=== PATIENT | female | born 1970 | race African-American/Black ===

== ENCOUNTER 2022-01-15 15:43 | Emergency (ER) | payer SELFPAY ==
[~2022-01-15] VITALS: Ht 172.7 cm; Wt 91.2 kg
--- NOTE | 2022-01-15 17:13 | NUR ---
Patient discharged to home in stable condition. Written and verbal after care instructions given. Patient verbalizes understanding of instructions. Stressed follow up or return to ER for worsening s/s.
[2022-01-15 17:21] VITALS: BP 121/70
== END 2022-01-15 17:27 | disposition home or self-care (01) ==
LOC: ER 15:49
DX: S60.221A Contusion of right hand, initial encounter (principal); W22.8XXA Striking against or struck by other objects, initial encounter; Y92.511 Restaurant or cafe as the place of occurrence of the external cause; Y99.0 Civilian activity done for income or pay; Z98.1 Arthrodesis status
CPT/HCPCS: 73130; A4663